=== PATIENT | female | born 1960 | race Caucasian/White ===

== ENCOUNTER 2019-06-19 11:01 | Emergency (ER) | payer BC ==
[2019-06-19 11:23] VITALS: BP 120/72
--- NOTE | 2019-06-19 11:32 | UC ---
Skin Complaint HPI - HPI Summary HPI Summary: 59-year-old female presents with complaints of a tick bite to her right chest wall. States she first noticed something 4 days ago and thought it was just a scab. Noticed that it was looking different this morning and had her check who then noticed it was a tick and removed it. She is unsure if it was engorged. Denies fever, chills, rash, flulike illness, myalgias, joint pain or swelling. - History of Current Complaint Chief Complaint: UCSkin Time Seen by Provider: 06/19/19 11:24 Stated Complaint: TICK CONCERN Hx Obtained From: Patient Hx Last Menstrual Period: postmenopausal Pain Intensity: 3 - Allergy/Home Medications Allergies/Adverse Reactions: Allergies Allergy/AdvReac Type Severity Reaction Status Date / Time No Known Allergies Allergy Verified 06/19/19 11:19 Home Medications: Home Medications Vitamin B Complex CAP* [B Complex CAP*] 1 tab PO DAILY 06/19/19 [History Confirmed 06/19/19] diphenhydrAMINE HCl [Benadryl Allergy] 1 tab PO ONCE 06/19/19 [History Confirmed 06/19/19] PMH/Surg Hx/FS Hx/Imm Hx Previously Healthy: Yes - Denies significant PMH - Surgical History Surgical History: None Surgery Procedure, Year, and Place: x2 - Family History Known Family History: Positive: Unknown - Social History Occupation: Employed Full-time Lives: With Family Alcohol Use: None Substance Use Type: None Smoking Status (MU): Light Every Day Tobacco Smoker Amount Used/How Often: <10 per day Household Exposure Type: Cigarettes Review of Systems All Other Systems Reviewed And Are Negative: Yes Constitutional: Negative: Fever, Chills Skin: Positive: Other - See HPI. Negative: Rash Respiratory: Positive: Negative Cardiovascular: Positive: Negative Gastrointestinal: Positive: Negative Genitourinary: Positive: Negative Musculoskeletal: Negative: Arthralgia, Myalgia Neurological: Positive: Negative Is Patient Immunocompromised?: No Physical Exam - Summary Physical Exam Summary: GENERAL APPEARANCE: Well developed, well nourished, alert and cooperative, and appears to be in no acute distress. CARDIAC: Normal S1 and S2. No S3, S4 or murmurs. Rhythm is regular. There is no peripheral edema, cyanosis or pallor. Extremities are warm and well perfused. Capillary refill is less than 2 seconds. Peripheral pulses intact. LUNGS: Clear to auscultation without rales, rhonchi, wheezing or diminished breath sounds. ABDOMEN: Positive bowel sounds. Soft, nondistended, nontender. No guarding or rebound. No masses or hepatosplenomegally. MUSKULOSKELETAL: ROM intact to all extremities. No joint erythema or tenderness. Normal muscular development. Normal gait. SKIN: Skin normal color, texture and turgor. Small circular area of erythema <1 cm in diameter with central darkened area and a small retained mouth part to the right chest wall. Triage Information Reviewed: Yes Vital Signs: Initial Vital Signs Temp 98.2 F 06/19/19 11:19 Pulse 68 06/19/19 11:19 Resp 16 06/19/19 11:19 BP 120/72 06/19/19 11:19 Pulse Ox 100 06/19/19 11:19 Vital Signs Reviewed: Yes Course/Dx - Course Course Of Treatment: 59-year-old female presents with complaints of a tick bite to her right chest wall. States she first noticed something 4 days ago and thought it was just a scab. Noticed that it was looking different this morning and had her check who then noticed it was a tick and removed it. She is unsure if it was engorged. Denies fever, chills, rash, flulike illness, myalgias, joint pain or swelling. Afebrile. Vital signs stable. Patient had a small circular area of erythema <1 cm in diameter with central darkened area and a small retained mouth part to the right chest wall and otherwise unremarkable exam. Discussed with the patient that based on her history of the tick likely being attached feeding for greater than 36 hours recommend prophylactic doxycycline at this time. Patient is agreeable and she was given a dose of doxycycline 200 mg PO the clinic. She is to follow-up with her primary care provider as needed. I reviewed the signs and symptoms of Lyme disease with the patient as well as a discomfort guidance and warning symptoms. Verbalizes understanding and agrees with plan of care. - Differential Diagnoses - Skin Complaint Differential Diagnoses: Local Allergic Reaction, Tick Born Illness - Diagnoses Provider Diagnosis: Tick bite of right side of chest wall Discharge ED - Sign-Out/Discharge Documenting (check all that apply): Patient Departure All imaging exams completed and their final reports reviewed: No Studies - Discharge Plan Condition: Stable Disposition: HOME Patient Education Materials: Tick Bite (ED) Referrals: Halina Mccarty MD [Primary Care Provider] - If Needed Additional Instructions: You were given a one-time dose of doxycycline 200 mg to help prevent Lyme disease. Ticks transmit infection only after they have attached and then taken a blood meal from their new host. A tick that has not attached cannot not pass any infection. Since the deer tick that transmits Lyme disease typically feeds for more than 36 hours before transmitting the organisim that causes Lyme disease, the risk of acquiring Lyme disease from an tick bite is extremely small, even in an area where the disease is common. There is no benefit of blood testing for Lyme disease at the time of the tick bite because even people who become infected will not have a positive blood test until approximately two to six weeks after the tick bite. To try to avoid getting bitten by a tick, you can: * Wear shoes, long-sleeved shirts, and long pants when you go outside. Keep ticks away from your skin by tucking your pants into your socks. * Wear light colors so you can spot any ticks that get on your clothes. * Wear bug spray or cream that contains DEET. (Do not use DEET on babies younger than 2 months.) On your clothes and gear, you can use bug repellents that have a chemical called "permethrin." * Shower within 2 hours of being outdoors if you think you have been in an area where there are ticks. * Put dry clothes briefly (for about 4 minutes) in a dryer after being outdoors. * Check your clothes and body for ticks after being outdoors. Be sure to check your scalp, waist, armpits, groin, and backs of your knees. Check your children , too. After a tick bite, you will need to monitor for signs of Lyme disease over the nexter several weeks even if you have been given antibiotics to prevent the infection. Seek immediate medical attention if you develop a bullseye rash, fever, flu-like symptoms including headache, stiff neck, fatigue, muscle aches, joint pain or swelling. - Billing Disposition and Condition Condition: STABLE Disposition: Home
[2019-06-19] MEDS ORDERED: DOXYcycline CAP(*) 100 MG PO ONE (11:38)
== END 2019-06-19 11:49 | disposition home or self-care (01) ==
LOC: UCCORT 11:01
DX: S20.361A Insect bite (nonvenomous) of right front wall of thorax, initial encounter (principal); F17.200 Nicotine dependence, unspecified, uncomplicated; W57.XXXA Bitten or stung by nonvenomous insect and other nonvenomous arthropods, initial encounter; Y92.9 Unspecified place or not applicable
CPT/HCPCS: 99212; A9270-GY; G0463